=== PATIENT | female | born 1975 | race Caucasian/White ===

== ENCOUNTER → 2018-04-07 17:11 | Outpatient (CLI) | payer BC, SELFPAY | PROVIDERS: PCP Family Medicine; Visit Provider Family Medicine | DX: G47.9 Sleep disorder, unspecified (principal); R40.0 Somnolence; F51.3 Sleepwalking [somnambulism]; G47.8 Other sleep disorders | CPT/HCPCS: 95806 ==

== ENCOUNTER → 2018-05-27 19:56 | Outpatient (CLI) | payer BC, SELFPAY | PROVIDERS: PCP Specialist; Visit Provider Specialist | DX: G47.30 Sleep apnea, unspecified (principal) | CPT/HCPCS: 95810 ==

== ENCOUNTER → 2018-12-09 16:31 | Outpatient (CLI) | payer BC, SELFPAY | PROVIDERS: PCP Family Medicine; Visit Provider Nurse Practitioner Family | DX: G47.00 Insomnia, unspecified (principal); G47.19 Other hypersomnia; G47.33 Obstructive sleep apnea (adult) (pediatric) | CPT/HCPCS: 94762 ==

== ENCOUNTER → 2020-08-17 09:38 | Outpatient (CLI) | payer BC, SELFPAY ==
[2020-08-17 11:56] LABS: HCG Qualitative, Serum Negative (Negative)
[2020-08-17 12:00] LABS: Coronavirus 19 IgG Antibody Positive (Negative); Coronavirus 19 IgM Antibody Negative (Negative)
== END ==
PROVIDERS: Visit Provider Internal Medicine Gastroenterology
DX: Z01.818 Encounter for other preprocedural examination (principal); Z20.822 Contact with and (suspected) exposure to COVID-19; Z12.11 Encounter for screening for malignant neoplasm of colon; R14.0 Abdominal distension (gaseous)
CPT/HCPCS: 36415; 84703; 86328

== ENCOUNTER 2020-08-18 09:58 | Day surgery (SDC) | payer BC, SELFPAY ==
[2020-08-10 10:11] VITALS: BMI 35.8
[2020-08-18] VITALS (7 sets, daily range): BP systolic 106–136; BP diastolic 74–86; PULSE 73–85; RESP 16–18; TEMP 37.1–37.3; O2SAT 97–100
--- NOTE | 2020-08-18 10:55 | P.PN_ITS ---
[facility] Anesthesia Checklist - Patient Identification Patient Identification: Verbal (Name & ) - Structural Data Planned Operative Procedure/s: colonoscopy Consent for Planned Operative Procedure(s) Verified: Yes Verified Documents: Surgical Consent - NPO Status Verified Time NPO: 00:00 - Cardiovascular Assessment Heart Sounds: S1 & S2 Pulse Rhythm: Regular - Airway Assessment C-Spine Mobility Assessed: Yes TMJ Mobility Assessed: Yes Dentition: Good Dentition - Neurological Assessment Level of Consciousness: Awake - Anesthesia Plan Anesthesia Risk discussed: Yes ASA Class: III Anesthesia Type: MAC [facility] History I have reviewed the patient's past medical history: Yes Medical History: Reports:: Cancer (skin cancer), Gastroesophageal Reflux Disease(GERD), Hypertension Denies:: Diabetes Mellitus Type 1, Diabetes Mellitus Type 2, Internal Pac emaker, MRSA, Seizures *Have you ever received a pneumonia vaccine?: No *Have you received a flu vaccine this season?: Yes Other Medical History: Reports: Arthritis, Other Anesthesia experience/problems:: none Other Surgeries: Yes: Cancer Surgery, Colonoscopy, Dilation and Curettage, Skin Cancer Excision. No: Pacemaker Amputation: No Fractures: Yes - *Social History Last grade of school completed: Advanced degree Smoking Status: Former smoker #Yrs smoked (if former smoker): 10 Alcohol Intake: current Alcohol Intake Frequency:: holidays/special occasions only Substance Use Type: denies use *Occupational Status:: employed Housing: house Household Members: family *Travel in the last 8 weeks: None Family Hx:: Cancer, Coronary Artery Disease, Diabetes, Hyperlipidemia
--- NOTE | 2020-08-18 11:31 | HMH.PROC ---
[facility] Procedure Note Procedure Note:: Colonoscopy Procedure Report: Colonoscopy with cold biopsies and monopolar coagulation/ablation of internal hemorrhoids Endoscopist: Jb Calero II, MD Referring physician: Margot Dunne MD/Glenna Gomez DO Date of Procedure: September 18, 2020 Equipment: Olympus 180 variable stiffness pediatric colonoscope Sedation: MAC sedation Indication: Mrs. Torres is a 44-year-old female with longstanding irritable bowel syndrome. 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 She was referred for investigation for inflammatory bowel disease. She did have elevated C-reactive protein and arthralgias. She does have a long history of bowel irregularity with intermittent constipation and sometimes followed by diarrhea. She tried Trulance which resulted in diarrhea. She does have bright red rectal bleeding that occurs at least a couple of times weekly. She has tried Linzess but this also resulted in diarrhea. She tried MiraLAX and fiber without much improvement. Her IBS constipation has gradually gotten worse. She had a colonoscopy with Dr. Adelfo Dean in 2017. She reports lower abdominal cramps and pain. She has gained some weight. She does state that her paternal grandmother had IBD. Procedure: Prior to the procedure, a history and physical exam was performed, and patient's medications and allergies were reviewed. The risks, benefits and alternatives of the sedation and procedure were discussed with the patient. All questions were answered and informed consent was obtained. The patient was brought to the procedure room. Patient identification and proposed procedure were verified by the physician and the nurse. The patient was placed in a left lateral decubitus position and the scope was passed under direct vision. Throughout the procedure, the patient's blood pressure, pulse, and oxygen saturations were monitored continuously. The colonoscopy was accomplished without difficulty. The patient tolerated the procedure well. Findings: On digital rectal examination there was normal rectal tone. There were no external hemorrhoids. The colonoscope was introduced through the anal canal to the rectum and advanced to the cecum. The ileocecal valve and appendiceal orifice were identified. The scope was advanced a short distance into the ileum which appeared grossly normal. The scope was then withdrawn into the colon. Cold biopsies were taken from the right colon randomly to rule out microscopic colitis. The remaining cecum, ascending, transverse, descending, sigmoid and rectum were grossly normal. There were no mucosal abnormalities identified. Upon retroflexion within the rectum there were grade 1-2 internal hemorrhoids. 3 of the columns of hemorrhoids were ablated/coagulated with monopolar ablation to destruction of the internal hemorrhoids. The preparation was excellent throughout with [place] Preparation Score of 9. The cecal time was 12 minutes. Impression: 1. Normal colonoscopy with intubation of the terminal ileum 2. Grade 1-2 internal hemorrhoids status post monopolar ablation/coagulation Plan: I do not feel that the Sweets syndrome is associated with any IBD. She does have chronic digestive difficulties and IBS. I would consider a promotility agent such as Zelnorm or Motegrity. We will discuss treatment options. I will follow-up the biopsies and discuss treatment options with the patient and family.
== END 2020-08-18 12:20 | disposition home or self-care (01) ==
LOC: OUTP 09:59
PROVIDERS: PCP Family Medicine; Visit Provider Internal Medicine Gastroenterology
PROC: 0DJD8ZZ Inspection of Lower Intestinal Tract, Via Natural or Artificial Opening Endoscopic (ICD-10-PCS; CPT 45378; principal; 2020-08-18 11:00)
DX: K64.0 First degree hemorrhoids (principal); K62.5 Hemorrhage of anus and rectum; K58.2 Mixed irritable bowel syndrome; L98.2 Febrile neutrophilic dermatosis [Sweet]; K21.9 Gastro-esophageal reflux disease without esophagitis; I10 Essential (primary) hypertension; M19.90 Unspecified osteoarthritis, unspecified site; Z85.828 Personal history of other malignant neoplasm of skin; Z88.0 Allergy status to penicillin; Z79.899 Other long term (current) drug therapy
CPT/HCPCS: 45380; 45388

== ENCOUNTER 2021-01-13 09:37 | Emergency (ER) | payer BC, SELFPAY ==
[2021-01-13 09:42] VITALS: BP 134/74; PULSE 67; RESP 14; TEMP 36.6; O2SAT 98; BMI 35.0
--- NOTE | 2021-01-13 09:57 | HMH.EDUTC ---
[facility] [place] Disposition Clinical Impression: UTI (urinary tract infection) Qualifiers: Urinary tract infection type: site unspecified Hematuria presence: with hematuria Qualified Code(s): N39.0 - Urinary tract infection, site not specified Disposition: Home, Self-Care Condition on Discharge: Good Instructions: Urinary Tract Infection, DI for Urinary Tract Infection (UTI) Additional Instructions: Drink plenty of fluids. Take tylenol or ibuprofen for pain or fever. Take the medications as directed. Follow up with your regular doctor. GO TO THE ER FOR ANY WORSENING SYMPTOMS The pyridium will make your urine turn orange, this is an expected side effect. It will stain your clothes if it comes into contact with them. Prescriptions: Ciprofloxacin HCl 500 mg PO BID 7 Days #14 tab Transmission Status: Received by [facility] Phenazopyridine HCl [Pyridium 200mg Tablet] 200 pow PO TID #6 tab Transmission Status: Received by [id number] Referrals: Glenna Gomez [Primary Care Provider] - Forms: Work/School Release Time of Disposition: 10:04 Medical Decision Making - Medical Records Medical records reviewed: No: I reviewed the patient's medical records. - [place]ylor Inquiry Pt receiving controlled substance: No Vital Signs: 01/13/21 09:42 01/13/21 10:03 Temperature 98 F 98 F Temperature Source Oral Pulse Rate 67 Pulse Rate [Left] 67 Respiratory Rate 14 14 Blood Pressure 129/76 Blood Pressure [Right Arm] 134/74 Blood Pressure Mean [Right Arm] 94 02 Sat by Pulse Oximetry 98 - Lab Data Lab results reviewed: Yes: I reviewed the patient's lab results. Lab Results 01/13/21 09:53: Urine Color Yellow, Urine Appearance Slightly cloudy, Urine pH 6.0, Ur Specific [place] < 1.005 L, Urine Protein Negative, Urine Glucose (UA) Negative, Urine Ketones Negative, Urine Blood 4+, Urine Nitrate Negative, Urine Bilirubin Negative, Urine Urobilinogen 0.2, Ur Leukocyte Esterase 2+ A Orders (Tests/Meds): ORDERS Category Date Time Status Urine Culture Stat Micro 01/13/21 09:48 Results [facility] [place] HPI - General Stated complaint: possible UTI Time Seen by Provider: 01/13/21 09:57 Mode of Arrival: Ambulatory Source of Information: Patient Limitations: No Limitations Description of Symptoms (Recalled from Triage Doc. by RN): pt c/o of burning with urination and frequency. HEENT Symptoms (Recalled from RN notes): No Resp Symptoms (Recalled from RN notes): No Skin Symptoms (Recalled from RN notes): No MS Symptoms (Recalled from RN notes): No Functional Status (Recalled from RN notes): na - History of Present Illness Provider Complaint: She c/o burning with urination and urinary frequency since yesterday. She used to get UTI's kind of frequently, but that had slowed down. But, this is her second UTI in approx 3 months. She denies any fever, chills, n/v. - Related Data Home Medications Medication Instructions Recorded Confirmed omeprazole 20 mg capsule,delayed 20 mg PO DAILY 30 Days #30 cap 05/18/18 12/20/20 release dicyclomine 10 mg capsule 10 mg PO QID PRN 01/20/19 12/20/20 alendronate 70 mg tablet 70 mg PO WEEKLY 06/21/20 12/20/20 cholecalciferol (vitamin D3) 125 125 mcg PO DAILY 06/21/20 12/20/20 mcg (5,000 unit) tablet lisinopril 20 mg tablet 10 mg PO DAILY #30 tab 06/21/20 12/20/20 oxybutynin chloride 15 mg 15 mg PO DAILY #30 tab 06/21/20 12/20/20 tablet,extended release 24 hr propranolol 20 mg tablet 20 mg PO TID tab 12/20/20 12/20/20 Previous Rx's Medication Instructions Recorded doxepin 10 mg capsule 10 mg PO QHS 30 Days #30 cap 12/20/20 Ciprofloxacin HCl 500 mg PO BID 7 Days #14 tab 01/13/21 Phenazopyridine HCl [Pyridium 200 pow PO TID #6 tab 01/13/21 200mg Tablet] Allergies Allergy/AdvReac Type Severity Reaction Status Date / Time Penicillins Allergy Unknown Verified 12/20/20 08:49 - Worker's Comp Is this a Worker's Comp case?
[2021-01-13 10:02] LABS: Apearance,Urine Slightly Cloudy (Clear); Bilirubin,Urine Negative (Negative); Blood, Urine 4+ (Negative); Color,Urine Yellow (Yellow); Glucose,Urine (UA) Negative (Negative); Ketones,Urine Negative (Negative); Protein,Urine Negative (Negative); Specific Gravity, Urine < 1.005 (1.005-1.030); UTC Leukocyte Esterase,Urine 2+ (Negative); UTC Nitrate,Urine Negative (Negative); Urobilinogen,Urine 0.2 EU/dl (0.2)
[2021-01-13 10:03] VITALS: BP 129/76; PULSE 67; RESP 14; TEMP 36.6
== END 2021-01-13 10:07 | disposition home or self-care (01) ==
PROVIDERS: Emergency Provider Nurse Practitioner Family; PCP Family Medicine
DX: N30.00 Acute cystitis without hematuria (principal); B96.20 Unspecified Escherichia coli [E. coli] as the cause of diseases classified elsewhere; K21.9 Gastro-esophageal reflux disease without esophagitis; I10 Essential (primary) hypertension; Z87.891 Personal history of nicotine dependence; Z79.899 Other long term (current) drug therapy
CPT/HCPCS: 81003; 87086; 87088; 87186; 99202; G0463

== ENCOUNTER 2021-06-20 15:30 | Emergency (ER) | payer BC, SELFPAY ==
[2021-06-20 17:24] VITALS: BP 146/80; PULSE 83; RESP 16; TEMP 36.7; O2SAT 100; BMI 33.4
--- NOTE | 2021-06-20 17:53 | HMH.EDUTC ---
[facility] [place] Disposition Clinical Impression: UTI (urinary tract infection) Qualifiers: Urinary tract infection type: site unspecified Hematuria presence: with hematuria Qualified Code(s): N39.0 - Urinary tract infection, site not specified; R31.9 - Hematuria, unspecified Disposition: Home, Self-Care Condition on Discharge: Good Instructions: DI for Urinary Tract Infection (UTI), Phenazopyridine Additional Instructions: Drink plenty of fluids. Take tylenol or ibuprofen for pain or fever. Take the medications as directed. Follow up with your regular doctor. GO TO THE ER FOR ANY WORSENING SYMPTOMS The pyridium will make your urine turn orange, this is an expected side effect. It will stain your clothes if it comes into contact with them. Prescriptions: Ondansetron [Zofran 4mg ODT] 4 mg PO Q8HP PRN #12 tab PRN Reason: Nausea Transmission Status: Pending to [facility] Sulfamethoxazole/Trimethoprim [Bactrim DS tablet] 1 each PO BID 7 Days #14 tab Transmission Status: Pending to [facility] Phenazopyridine HCl [Pyridium 200mg Tablet] 200 pow PO TID #6 tab Transmission Status: Pending to [facility] Referrals: Glenna Gomez [Primary Care Provider] - Time of Disposition: 18:09 Medical Decision Making - Medical Records Medical records reviewed: No: I reviewed the patient's medical records. - Tylor Inquiry Pt receiving controlled substance: No Vital Signs: 06/20/21 17:24 Temperature 98.1 F Temperature Source Oral Pulse Rate [Left] 83 Respiratory Rate 16 Blood Pressure [Right Arm] 146/80 H Blood Pressure Mean [Right Arm] 102 02 Sat by Pulse Oximetry 100 - Lab Data Lab results reviewed: Yes: I reviewed the patient's lab results. Lab Results 06/20/21 17:26: Urine Color Yellow, Urine Appearance Slightly cloudy, Urine pH 5.5, Ur Specific [place] > 1.030 H, Urine Protein Trace, Urine Glucose (UA) Negative, Urine Ketones Negative, Urine Blood 4+, Urine Nitrate Negative, Urine Bilirubin Negative, Urine Urobilinogen 0.2, Ur Leukocyte Esterase 2+ A Orders (Tests/Meds): ORDERS Category Date Time Status Urine Culture Stat Micro 06/20/21 17:26 Received [facility] [place] HPI - General Stated complaint: Possible UTI Time Seen by Provider: 06/20/21 17:53 Mode of Arrival: Ambulatory Source of Information: Patient Limitations: No Limitations Description of Symptoms (Recalled from Triage Doc. by RN): pt c/o burning with urination since this am. HEENT Symptoms (Recalled from RN notes): No Resp Symptoms (Recalled from RN notes): No Skin Symptoms (Recalled from RN notes): No MS Symptoms (Recalled from RN notes): No Functional Status (Recalled from RN notes): wnl - History of Present Illness Provider Complaint: She states that since this morning she has had low back pain, urinary frequency, dysuria, and some chills. She feels like she has a UTI. She gets them occasionally. - Related Data Home Medications Medication Instructions Recorded Confirmed omeprazole 20 mg capsule,delayed 20 mg PO DAILY 30 Days #30 cap 05/18/18 12/20/20 release dicyclomine 10 mg capsule 10 mg PO QID PRN 01/20/19 12/20/20 alendronate 70 mg tablet 70 mg PO WEEKLY 06/21/20 12/20/20 cholecalciferol (vitamin D3) 125 125 mcg PO DAILY 06/21/20 12/20/20 mcg (5,000 unit) tablet lisinopril 20 mg tablet 10 mg PO DAILY #30 tab 06/21/20 12/20/20 oxybutynin chloride 15 mg 15 mg PO DAILY #30 tab 06/21/20 12/20/20 tablet,extended release 24 hr propranolol 20 mg tablet 20 mg PO TID tab 12/20/20 12/20/20 Previous Rx's Medication Instructions Recorded doxepin 10 mg capsule 10 mg PO QHS 30 Days #30 cap 12/20/20 Ciprofloxacin HCl 500 mg PO BID 7 Days #14 tab 01/13/21 Phenazopyridine HCl [Pyridium 200 pow PO TID #6 tab 01/13/21 200mg Tablet] Ondansetron [Zofran 4mg ODT] 4 mg PO Q8HP PRN #12 tab 06/20/21 Phenazopyridine HCl [Pyridium 200 pow PO TID #6 tab 06/20/21 200mg Tablet
[2021-06-20 17:57] LABS: Apearance,Urine Slightly Cloudy (Clear); Blood, Urine 4+ (Negative); Color,Urine Yellow (Yellow); Glucose,Urine (UA) Negative (Negative); Ketones,Urine Negative (Negative); PH,Urine 5.5 (5.0-8.5); Protein,Urine Trace (Negative); Specific Gravity, Urine > 1.030 (1.005-1.030)
[2021-06-20 17:58] LABS: Bilirubin,Urine Negative (Negative); UTC Leukocyte Esterase,Urine 2+ (Negative); UTC Nitrate,Urine Negative (Negative); Urobilinogen,Urine 0.2 EU/dl (0.2)
[2021-06-20 18:29] VITALS: BP 146/80; PULSE 83; RESP 16; TEMP 36.7
== END 2021-06-20 18:30 | disposition home or self-care (01) ==
PROVIDERS: Emergency Provider Nurse Practitioner Family; PCP Family Medicine
DX: N30.00 Acute cystitis without hematuria (principal); K21.9 Gastro-esophageal reflux disease without esophagitis; I10 Essential (primary) hypertension
CPT/HCPCS: 81003; 87086; 87088; 87186; 99202; G0463